=== PATIENT | male | born 1980 | race Two or more races ===

== ENCOUNTER 2019-11-13 11:42 | Inpatient (IN) | payer BC ==
--- NOTE | 2019-11-13 11:46 | BHS.RME ---
Substance Use & Tx History - Substance Use History Alcohol Substance amount: 5-10 beers Frequency of use: Daily Substance route: Oral Date of Last Use: 11/12/19 Marijuana/Hashish Substance amount: $50-60 Frequency of use: Daily Substance route: Smoking Date of Last Use: 11/13/19 Nicotine Substance amount: cigars 5 Frequency of use: Daily Substance route: Smoking Date of Last Use: 11/13/19 - Last Treatment Date of last treatment: none Physical/Psych/Mental Status - Behavior General Behavior: Increased activity (restlessness, agitation) Eye Contact: Normal - Cooperativeness Cooperativeness: Cooperative - Thinking Thought Processes: Tight, Logical, Goal Directed Thought content: Future oriented - Physical Health Problems Is patient presently having any pain?: No Does patient presently have any injuries (include location): No Does patient currently have a fever: No Is patient : No CIWA Nausea/Vomitin Muscle Tremors: 3 Anxiety: 3 Agitation: 3 Paroxysmal Sweats: 1-Minimal Palms Moist Orientation: 0-Oriented Tacttile Disturbances: 0-None Auditory Disturbances: 0-None Visual Disturbances: 0-None Headache: 0-None Present CIWA-Ar Total Score: 12
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
[2019-11-13] MEDS ORDERED: IBUPROFEN 400 MG TABLET (FP) PO PRN (13:07)
[2019-11-13] MEDS ORDERED: NICOTINE POLACRILEX 2 MG GUM BUC PRN (13:07)
[2019-11-13] MEDS ORDERED: ONDANSETRON *ODT* 4 MG TABLET SL ONE (13:07)
[2019-11-13] MEDS ORDERED: MAGNESIUM HYDROX 2400MG/30ML ORAL SUSPENSION 30 ML CUP PO PRN (13:07)
[2019-11-13] MEDS ORDERED: MAG HYDROX/AL HYDROX/SIMETH 30 ML UNIT-DOSE CUP PO PRN (13:07)
[2019-11-13] MEDS ORDERED: MAGNESIUM CITRATE 300 ML BOTTLE PO PRN (13:07)
[2019-11-13] MEDS ORDERED: METHOCARBAMOL 500 MG TABLET PO PRN (13:07)
[2019-11-13] MEDS ORDERED: BISMUTH SUBSALICYLATE 524 MG/30 ML UD PO PRN (13:07)
[2019-11-13] MEDS ORDERED: chlordiazePOXIDE HCL 25 MG CAPSULE PO PRN (13:07)
[2019-11-13] MEDS ORDERED: ACETAMINOPHEN 325 MG TABLET (FP) PO PRN ×2 (13:07)
[2019-11-13 14:33] VITALS: BMI 22.2
[2019-11-13] MEDS ORDERED: TUBERCULIN PPD 5 TU/0.1ML VIAL ID ONE (15:27)
[2019-11-13] MEDS: chlordiazePOXIDE HCL 25 MG CAPSULE PO SCH ×3 (15:28→22:00)
[2019-11-13] MEDS: PRENATAL VITAMINS W/ FOLIC ACID TABLET (FP) PO SCH (15:29)
[2019-11-13] MEDS: hydrOXYzine PAMOATE 25 MG CAPSULE (FP) PO SCH ×3 (15:29→22:00)
[2019-11-13] MEDS: NICOTINE 7 MG/24 HOURS TOPICAL PATCH TD SCH (15:30)
--- NOTE | 2019-11-13 15:49 | EKG ---
Test Reason : Blood Pressure : / mmHG Vent. Rate : 064 BPM Atrial Rate : 064 BPM P-R Int : 138 ms QRS Dur : 092 ms QT Int : 440 ms P-R-T Axes : 051 085 055 degrees QTc Int : 453 ms NORMAL SINUS RHYTHM LEFT ATRIAL ENLARGEMENT LEFT VENTRICULAR HYPERTROPHY ABNORMAL ECG NO PREVIOUS ECGS AVAILABLE Confirmed by MD EUGENE, JUSTUS ([id number]) on 11/13/2019 3:48:55 PM Referred By: Confirmed By:JUSTUS KNIGHT MD
[2019-11-13 16:28] LABS: HEMATOCRIT 40.2 % (35.4-49); HEMOGLOBIN 13.9 GM/dL (11.7-16.9); MCH 31.2 pg (25.7-33.7); MCHC 34.5 g/dl (32.0-35.9); MEAN CELL VOLUME 90.3 fl (80-96); MEAN PLT VOLUME 7.9 fl (7.5-11.1); PLATELET COUNT 246 K/MM3 (134-434); RBC 4.46 M/mm3 (4.00-5.60); RDW 16.5 % (11.9-15.9); WHITE BLOOD COUNT 5.9 K/mm3 (4.0-10.0)
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
[2019-11-13 16:41] LABS: CALCIUM 8.8 mg/dL (8.5-10.1); POTASSIUM 4.5 mmol/L (3.5-5.1)
[2019-11-13 16:47] LABS: ALBUMIN 3.3 g/dl (3.4-5.0); BILIRUBIN,TOTAL 0.6 mg/dL (0.2-1); BLOOD UREA NITROGEN 14.5 mg/dL (7-18); CREATININE 1.2 mg/dL (0.55-1.3); TOT PROT 7.9 g/dl (6.4-8.2)
[2019-11-13] MEDS ORDERED: PATIENT'S OWN MEDICATION (NON-FORMULARY) (Olanzapine [Olanzapine] 15 MG) PO PRN (17:14)
[2019-11-13] MEDS: MENTHOL/PHENOL 1 EACH UD MM PRN ×2 (18:18→22:03)
[2019-11-13] MEDS: OLANZapine 5 MG TABLET PO SCH (21:59)
[2019-11-13] MEDS: MELATONIN 5 MG TABLETS PO SCH (21:59)
[2019-11-13] MEDS: THIAMINE HCL 100 MG TABLET (FP) PO SCH (22:00)
[2019-11-14] MEDS: chlordiazePOXIDE HCL 25 MG CAPSULE PO SCH ×4 (06:57→22:14)
[2019-11-14] MEDS: hydrOXYzine PAMOATE 25 MG CAPSULE (FP) PO SCH ×5 (06:58→22:14)
[2019-11-14] MEDS: PRENATAL VITAMINS W/ FOLIC ACID TABLET (FP) PO SCH (10:18)
[2019-11-14] MEDS: NICOTINE 7 MG/24 HOURS TOPICAL PATCH TD SCH (10:19)
--- NOTE | 2019-11-14 12:21 | PN ---
S CIWA - CIWA Score Nausea/Vomitin-No Nausea/No Vomiting Muscle Tremors: 4-Moderate,w/Arms Extend Anxiety: 1-Mildly Anxious Agitation: 0-Normal Activity Paroxysmal Sweats: 4-Forehead w/Sweat Beads Orientation: 1-Uncertain about Date Tacttile Disturbances: 1-Very Mild Itch/Numbness Auditory Disturbances: 0-None Visual Disturbances: 0-None Headache: 2-Mild CIWA-Ar Total Score: 13 S Progress Note (SOAP) Subjective: Patient admitted yesterday for detox from alcohol. Now c/o sore throat. PMHx: 39 year old male with history of alcohol dependence with withdrawals. H Alcohol: 5-10 beers 16 oz -24 oz daily, started at age 15, endorses blackouts, last one just 2 days prior to admission; needs eye business intelligence administrator daily. denies seizure. Marijuana: $50-60 daily, started smoking at the age of 32 PMH: none Psurg: None Psych: Schizophrenia, Depression on no meds. Objective: - Physical General Appearance: Thin, Irritable, Sweating, Anxious HEENTM: EOMI, Hearing grossly Normal,Normocephalic, Hoarse Voice, BREANN, Pharynx reddened. tongue with white coat Respiratory: No Respiratory Distress, No Accessory Muscle Use Neck:Supple, Cardiology: S1, S2 Abdominal: +Bowel Sounds, Non Tender, Flat, Soft Musculoskeletal: no muscle atrophy noted Neurological: oriented x4 Lymph: non-palpable 11/14/19 12:23 11/14/19 12:34 11/14/19 12:37 Assessment: withdrawal from alcohol throat discomfort 11/14/19 12:35 Plan: continue detox protocol encourage cepacol Nystatin swish & swallow
[2019-11-14] MEDS: OLANZapine 5 MG TABLET PO SCH (22:14)
[2019-11-14] MEDS: THIAMINE HCL 100 MG TABLET (FP) PO SCH (22:14)
[2019-11-14] MEDS: MELATONIN 5 MG TABLETS PO SCH (22:14)
[2019-11-15] MEDS: chlordiazePOXIDE HCL 25 MG CAPSULE PO SCH ×4 (05:48→23:07)
[2019-11-15] MEDS: hydrOXYzine PAMOATE 25 MG CAPSULE (FP) PO SCH ×5 (05:48→23:07)
[2019-11-15] MEDS: PRENATAL VITAMINS W/ FOLIC ACID TABLET (FP) PO SCH (10:46)
[2019-11-15] MEDS: NICOTINE 7 MG/24 HOURS TOPICAL PATCH TD SCH (10:47)
[2019-11-15] MEDS: MENTHOL/PHENOL 1 EACH UD MM PRN (10:48)
--- NOTE | 2019-11-15 10:59 | PN ---
S CIWA - CIWA Score Nausea/Vomitin-Mild Nausea/No Vomiting Muscle Tremors: 3 Anxiety: 4-Mod. Anxious/Guarded Agitation: 3 Paroxysmal Sweats: 2 Orientation: 0-Oriented Tacttile Disturbances: 0-None Auditory Disturbances: 0-None Visual Disturbances: 0-None Headache: 0-None Present CIWA-Ar Total Score: 13 BHS Progress Note (SOAP) Subjective: Pt c/o anxiety throat irritation(see previous day note) sweats intermittent sleep. Objective: 11/15/19 10:56 Vital Signs - 24 hr 11/14/19 11/14/19 11/14/19 12:30 16:30 20:10 Temperature 98.6 F 97.7 F 97.1 F L Pulse Rate 90 88 98 H Respiratory 18 16 18 Rate Blood Pressure 125/73 133/75 117/76 O2 Sat by Pulse 97 96 Oximetry (%) 11/15/19 05:36 Temperature 98.2 F Pulse Rate 78 Respiratory 18 Rate Blood Pressure 112/66 O2 Sat by Pulse 94 L Oximetry (%) Laboratory Tests 11/13/19 11/13/19 11/13/19 13:30 13:30 13:30 WBC 5.9 RBC 4.46 Hgb 13.9 Hct 40.2 MCV 90.3 MCH 31.2 MCHC 34.5 RDW 16.5 H Plt Count 246 MPV 7.9 Sodium 139 Potassium 4.5 Chloride 103 Carbon Dioxide 29 Anion Gap 7 L BUN 14.5 Creatinine 1.2 Est GFR (CKD-EPI)AfAm 86.53 Est GFR (CKD-EPI)NonAf 74.66 Random Glucose 91 Calcium 8.8 Total Bilirubin 0.6 AST 57 H ALT 73 H Alkaline Phosphatase 79 Total Protein 7.9 Albumin 3.3 L Syphilis Serology Non-reactive covid-19 result pending alert o x 3 nad laying in bed and communicating coherently Assessment: 11/15/19 10:57 withdrawal sx Plan: cont detox/present care increase po fluids maintain safety Nystatin Oral suspension as directed.
[2019-11-15] MEDS ORDERED: ONDANSETRON *ODT* 4 MG TABLET SL PRN (11:29)
[2019-11-15] MEDS: NYSTATIN 500,000 UNITS/5 ML SUSPENSION PO SCH ×2 (12:02→17:51)
[2019-11-15] MEDS: guaiFENesin/D-METHORPHAN HB 10 ML UNIT-DOSE CUPS PO PRN (23:06)
[2019-11-15] MEDS: OLANZapine 5 MG TABLET PO SCH (23:07)
[2019-11-15] MEDS: THIAMINE HCL 100 MG TABLET (FP) PO SCH (23:07)
[2019-11-15] MEDS: MELATONIN 5 MG TABLETS PO SCH (23:08)
[2019-11-16] MEDS ORDERED: chlordiazePOXIDE HCL 10 MG CAPSULE PO PRN
[2019-11-16] MEDS: NYSTATIN 500,000 UNITS/5 ML SUSPENSION PO SCH ×4 (01:23→17:30)
[2019-11-16] MEDS: guaiFENesin/D-METHORPHAN HB 10 ML UNIT-DOSE CUPS PO PRN ×3 (06:15→22:04)
[2019-11-16] MEDS: chlordiazePOXIDE HCL 10 MG CAPSULE PO SCH ×4 (06:15→22:04)
[2019-11-16] MEDS: hydrOXYzine PAMOATE 25 MG CAPSULE (FP) PO SCH ×5 (06:15→22:04)
[2019-11-16] MEDS: PRENATAL VITAMINS W/ FOLIC ACID TABLET (FP) PO SCH (10:10)
[2019-11-16] MEDS: NICOTINE 7 MG/24 HOURS TOPICAL PATCH TD SCH (10:12)
--- NOTE | 2019-11-16 10:37 | PN ---
[facility] CIWA - CIWA Score Nausea/Vomitin-No Nausea/No Vomiting Muscle Tremors: 3 Anxiety: 3 Agitation: 2 Paroxysmal Sweats: No Perspiration Orientation: 0-Oriented Tacttile Disturbances: 0-None Auditory Disturbances: 0-None Visual Disturbances: 2-Mild Sensitivity Headache: 0-None Present CIWA-Ar Total Score: 10 S Progress Note (SOAP) Subjective: Complaints of sweat, anxiety, mild throat and tremors. Objective: 11/16/19 10:37 Vital Signs 11/16/19 11/16/19 05:38 08:31 Temperature 98.7 F 97.7 F Pulse Rate 87 98 H Respiratory 18 18 Rate Blood Pressure 124/70 120/73 O2 Sat by Pulse 91 L 97 Oximetry (%) Laboratory Last Values WBC 5.9 K/mm3 (4.0-10.0) 11/13/19 13:30 RBC 4.46 M/mm3 (4.00-5.60) 11/13/19 13:30 Hgb 13.9 GM/dL (11.7-16.9) 11/13/19 13:30 Hct 40.2 % (35.4-49) 11/13/19 13:30 MCV 90.3 fl (80-96) 11/13/19 13:30 MCH 31.2 pg (25.7-33.7) 11/13/19 13:30 MCHC 34.5 g/dl (32.0-35.9) 11/13/19 13:30 RDW 16.5 % (11.9-15.9) H 11/13/19 13:30 Plt Count 246 K/MM3 (134-434) 11/13/19 13:30 MPV 7.9 fl (7.5-11.1) 11/13/19 13:30 Sodium 139 mmol/L (136-145) 11/13/19 13:30 Potassium 4.5 mmol/L (3.5-5.1) 11/13/19 13:30 Chloride 103 mmol/L (98-107) 11/13/19 13:30 Carbon Dioxide 29 mmol/L (21-32) 11/13/19 13:30 Anion Gap 7 MMOL/L (8-16) L 11/13/19 13:30 BUN 14.5 mg/dL (7-18) 11/13/19 13:30 Creatinine 1.2 mg/dL (0.55-1.3) 11/13/19 13:30 Est GFR (CKD-EPI)AfAm 86.53 11/13/19 13:30 Est GFR (CKD-EPI)NonAf 74.66 11/13/19 13:30 Random Glucose 91 mg/dL (74-106) 11/13/19 13:30 Calcium 8.8 mg/dL (8.5-10.1) 11/13/19 13:30 Total Bilirubin 0.6 mg/dL (0.2-1) 11/13/19 13:30 AST 57 U/L (15-37) H 11/13/19 13:30 ALT 73 U/L (13-61) H 11/13/19 13:30 Alkaline Phosphatase 79 U/L (45-117) 11/13/19 13:30 Total Protein 7.9 g/dl (6.4-8.2) 11/13/19 13:30 Albumin 3.3 g/dl (3.4-5.0) L 11/13/19 13:30 Syphilis Serology Non-reactive (NONREACTIVE) 11/13/19 13:30 COVID-19 (GILBERTO) Not detected (Not Detected) 11/13/19 14:30 Labs reviewed. Assessment: 11/16/19 10:38 Alert and oriented x 3, in no acute respiratory distress. Full ROM, ambulating in the unit with cane. Withdrawal symptoms. Plan: Continue detox protocol.
[2019-11-16] MEDS: THIAMINE HCL 100 MG TABLET (FP) PO SCH (22:04)
[2019-11-16] MEDS: OLANZapine 5 MG TABLET PO SCH (22:04)
[2019-11-16] MEDS: MELATONIN 5 MG TABLETS PO SCH (22:04)
[2019-11-17] MEDS: NYSTATIN 500,000 UNITS/5 ML SUSPENSION PO SCH ×5 (00:33→23:24)
[2019-11-17] MEDS: hydrOXYzine PAMOATE 25 MG CAPSULE (FP) PO SCH ×5 (06:34→21:21)
[2019-11-17] MEDS: chlordiazePOXIDE HCL 10 MG CAPSULE PO SCH ×2 (06:34→17:31)
[2019-11-17] MEDS: NICOTINE 7 MG/24 HOURS TOPICAL PATCH TD SCH (10:19)
[2019-11-17] MEDS: PRENATAL VITAMINS W/ FOLIC ACID TABLET (FP) PO SCH (10:19)
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
[2019-11-17] MEDS: OLANZapine 5 MG TABLET PO SCH (21:21)
[2019-11-17] MEDS: THIAMINE HCL 100 MG TABLET (FP) PO SCH (21:21)
[2019-11-17] MEDS: MELATONIN 5 MG TABLETS PO SCH (21:21)
[2019-11-18] MEDS ORDERED: chlordiazePOXIDE HCL 10 MG CAPSULE PO ONE (05:00)
[2019-11-18] MEDS: NYSTATIN 500,000 UNITS/5 ML SUSPENSION PO SCH (06:16)
[2019-11-18] MEDS: hydrOXYzine PAMOATE 25 MG CAPSULE (FP) PO SCH ×2 (06:16→10:28)
[2019-11-18 06:23] VITALS: BP 141/75; PULSE 96; TEMP 98
--- NOTE | 2019-11-18 08:52 | DS ---
[facility] Detox Discharge Summary Admission Date: 11/13/19 Discharge Date: 11/18/19 - History Present History: Alcohol Dependence Additional Comments: Pt completed detox and discharging today. Pt was referred to [facility] but wants to go home today and follow up later. Pt states he has a PCP, Dr. Estes and a psychiatrist Dr. Maciel Brown at [facility]. Pt to follow up with providers for medical/psych management. Pertinent Past History: Depression Schizophrenia Sleeping problem - Physical Exam Results Vital Signs: Vital Signs Temperature 98.0 F 11/18/19 05:51 Pulse Rate 96 H 11/18/19 05:51 Respiratory Rate 17 11/18/19 05:51 Blood Pressure 141/75 11/18/19 05:51 O2 Sat by Pulse Oximetry (%) 97 11/18/19 05:51 Alert o x 3 nad oob ambulating with steady gait cardiac:s1 s2,rrr lungs:ctab extremities:no edema;skin intact. Pertinent Admission Physical Exam Findings: Laboratory Tests 11/13/19 11/13/19 11/13/19 13:30 13:30 13:30 WBC 5.9 RBC 4.46 Hgb 13.9 Hct 40.2 MCV 90.3 MCH 31.2 MCHC 34.5 RDW 16.5 H Plt Count 246 MPV 7.9 Sodium 139 Potassium 4.5 Chloride 103 Carbon Dioxide 29 Anion Gap 7 L BUN 14.5 Creatinine 1.2 Est GFR (CKD-EPI)AfAm 86.53 Est GFR (CKD-EPI)NonAf 74.66 Random Glucose 91 Calcium 8.8 Total Bilirubin 0.6 AST 57 H ALT 73 H Alkaline Phosphatase 79 Total Protein 7.9 Albumin 3.3 L Syphilis Serology Non-reactive COVID-19 (GILBERTO) 11/13/19 14:30 WBC RBC Hgb Hct MCV MCH MCHC RDW Plt Count MPV Sodium Potassium Chloride Carbon Dioxide Anion Gap BUN Creatinine Est GFR (CKD-EPI)AfAm Est GFR (CKD-EPI)NonAf Random Glucose Calcium Total Bilirubin AST ALT Alkaline Phosphatase Total Protein Albumin Syphilis Serology COVID-19 (GILBERTO) Not detected - Treatment Hospital Course: Detox Protocol Followed, Detoxed Safely, Responded well, Discharged Condition Good (Reports throat symptom resolved and does not need further treatment.), Rehab Referral Accepted Patient has Accepted a Rehab Referral to: [facility] - Medication Discharge Medications: Ambulatory Orders Hydroxyzine HCl 50 mg PO QID PRN 11/13/19 Olanzapine 20 mg PO DAILY PRN 11/13/19 - Diagnosis (1) Alcohol dependence with withdrawal Status: Acute Qualifiers: Complication of substance-induced condition: uncomplicated Qualified Code(s): F10.230 - Alcohol dependence with withdrawal, uncomplicated (2) Hoarseness of voice Status: Acute (3) Throat irritation Status: Acute - AMA Did Patient Leave Against Medical Advice: No
[2019-11-18] MEDS: NICOTINE 7 MG/24 HOURS TOPICAL PATCH TD SCH (10:28)
[2019-11-18] MEDS: PRENATAL VITAMINS W/ FOLIC ACID TABLET (FP) PO SCH (10:28)
== END 2019-11-18 12:00 | disposition home or self-care (01) | DRG 775 ==
LOC: YASAS 11:42 → Y5N DETOX 14:27
PROVIDERS: ADMIT Allergy & Immunology; ATTEND Allergy & Immunology
PROC: HZ2ZZZZ Detoxification Services for Substance Abuse Treatment (ICD-10-PCS; principal; 2019-11-13)
DX: F10.230 Alcohol dependence with withdrawal, uncomplicated (principal); F12.20 Cannabis dependence, uncomplicated; F17.210 Nicotine dependence, cigarettes, uncomplicated; F20.9 Schizophrenia, unspecified; F19.282 Other psychoactive substance dependence with psychoactive substance-induced sleep disorder; F32.9 Major depressive disorder, single episode, unspecified; J02.9 Acute pharyngitis, unspecified; R49.0 Dysphonia; S70.02XD Contusion of left hip, subsequent encounter; Y08.02XD Assault by strike by baseball bat, subsequent encounter; Z99.89 Dependence on other enabling machines and devices
CPT/HCPCS: 36415; 80053; 85027; 86780; 93005; 93010; U0003

== ENCOUNTER 2020-01-27 15:03 | Inpatient (IN) | payer BC ==
--- NOTE | 2020-01-27 15:19 | BHS.RME ---
Substance Use & Tx History - Substance Use History Alcohol Substance amount: 5-10 beers Frequency of use: Daily Substance route: Oral Date of Last Use: 01/27/20 (started age 14) Marijuana/Hashish Substance amount: $50-60 Frequency of use: Daily Substance route: Smoking Date of Last Use: 01/27/20 (started age 14) Nicotine Substance amount: 10 ciggs Frequency of use: Daily Substance route: Smoking Date of Last Use: 01/27/20 (started age 14) Physical/Psych/Mental Status - Behavior General Behavior: Increased activity (restlessness, agitation) Eye Contact: Normal - Cooperativeness Cooperativeness: Cooperative - Thinking Thought Processes: Tight, Logical, Goal Directed - Physical Health Problems Is patient presently having any pain?: No Does patient presently have any injuries (include location): No Does patient currently have a fever: No Is patient : No CIWA Nausea/Vomitin Muscle Tremors: 3 Anxiety: 3 Agitation: 3 Paroxysmal Sweats: 5 Orientation: 1-Uncertain about Date Tacttile Disturbances: 0-None Auditory Disturbances: 0-None Visual Disturbances: 1-Very Mild Sensitivity Headache: 0-None Present CIWA-Ar Total Score: 18
[2020-01-27 16:38] VITALS: BMI 23.7
--- NOTE | 2020-01-27 17:21 | HP ---
CIWA Score Nausea/Vomitin (vomiting x 2) Muscle Tremors: 3 Anxiety: 4-Mod. Anxious/Guarded Agitation: 3 Paroxysmal Sweats: 3 Orientation: 0-Oriented Tacttile Disturbances: 0-None Auditory Disturbances: 0-None Visual Disturbances: 0-None Headache: 2-Mild CIWA-Ar Total Score: 18 - Admission Criteria OASAS Guidelines: Admission for Medically Managed Detox: Requires at least one of the followin. CIWA greater than 12 2. Seizures within the past 24 hours 3. Delirium tremens within the past 24 hours 4. Hallucinations within the past 24 hours 5. Acute intervention needed for co occurring medical disorder 6. Acute intervention needed for co occurring psychiatric disorder 7. Severe withdrawal that cannot be handled at a lower level of care (continued vomiting, continued diarrhea, abnormal vital signs) requiring intravenous medication and/or fluids 8. Admitting History and Physical - Past Surgical History Past Surgical History: Yes: None - Smoking History Smoking history: Current every day smoker Have you smoked in the past 12 months: Yes Aproximately how many cigarettes per day: 0 - Alcohol/Substance Use Hx Alcohol Use: Yes History of Substance Use: reports: Marijuana Date of Last Use: 11/13/19 - Social History ADL: Independent Occupation: Quality Control Operator, unemployed History of Recent Travel: No Admission ROS [facility] Chief Complaint: Alcohol withdrawal symptoms Allergies/Adverse Reactions: Allergies Allergy/AdvReac Type Severity Reaction Status Date / Time No Known Allergies Allergy Verified 11/13/19 13:07 History of Present Illness: 39 years old male with a long history of alcohol dependence is seeking admission to detox. His last admission was for the period 11/13/2019 - 11/18/2019 and reports that he relapsed the same day he was discharged. He drinks 10 bottles of 12oz. beer and 3 pints of Suzanne daily. He denies medical history and reports psych. history of depression, schizophrenia. He reports suicidal attempt in 2011 and denies suicidal ideation at this time. He is unemployed ([employer]), lives alone in a studio apartment and denies legal issues. 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 His CIWA score is 18 and CARI is 0.137. Exam Limitations: Intoxication - Ebola screening Have you traveled outside of the country in the last 21 days: No Have you had contact with anyone from an Ebola affected area: No Have you been sick,other than usual withdrawal symptoms: No Do you have a fever: No - Review of Systems Constitutional: Chills, Loss of Appetite, Malaise, Night Sweats, Changes in sleep EENT: reports: No Symptoms Reported Respiratory: reports: No Symptoms reported Cardiac: reports: No Symptoms Reported GI: reports: Constipated, Poor Appetite, Poor Fluid Intake, Vomiting (x 2), Abdominal cramping : reports: No Symptoms Reported Musculoskeletal: reports: Back Pain, Muscle Pain Integumentary: reports: Dryness, Flushing Neuro: reports: Headache, Tremors Endocrine: reports: No Symptoms Reported Hematology: reports: No Symptoms Reported Psychiatric: reports: Mood/Affect Appropiate, Anxious, Depressed Other Systems: Reviewed and Negative Patient History - Patient Medical History Hx Anemia: No Hx Asthma: No Hx Chronic Obstructive Pulmonary Disease (COPD): No Hx Cancer: No Hx Cardiac Disorders: No Hx Congestive Heart Failure: No Hx Hypertension: No Hx Hypercholesterolemia: No Hx Pacemaker: No HX Cerebrovascular Accident: No Hx Seizures: No Hx Dementia: No Hx Diabetes: No Hx Gastrointestinal Disorders: No Hx Liver Disease: No Hx Genitourinary Disorders: No Hx Sexually Transmitted Disorders: No Hx Renal Disease (ESRD): No Hx Thyroid Disease: No Hx Human Immunodeficiency Virus (HIV): No (Negative 2020) Hx Hepatitis C: No Hx Depression: Yes (Pt. reports dx of Schizophrenia w/ Depressive feat., & Insomnia) Hx Suicide Attempt: Yes (Attempt in 2011. Denies suicidal ideation at this time) Hx Bipolar Disorder: No Hx Schizophrenia: Yes (Pt. reports dx of Schizophrenia w/ Depressive feat., & Insomnia) - Patient Surgical History Past Surgical History: No Hx Neurologic Surgery: No Hx Cataract Extraction: No Hx Cardiac Surgery: No Hx Lung Surgery: No Hx Abdominal Surgery: No Hx Appendectomy: No Hx Cholecystectomy: No Hx Genitourinary Surgery: No Hx Orthopedic Surgery: No - PPD History Previous Implant?: Yes Documented Results: Negative w/proof Implanted On Prior [facility] Admission?: Yes Date: 11/15/19 PPD to be Administered?: No - Reproductive History Patient is a Female of Child Bearing Age (11 -55 yrs old): No (Male) - Smoking Cessation Smoking history: Current every day smoker Have you smoked in the past 12 months: Yes Aproximately how many cigarettes per day: 5 Cigars Per Day: 5 Hx Chewing Tobacco Use: No Initiated information on smoking cessation: Yes 'Breaking Loose' booklet given: 01/27/20 - Substance & Tx. History Hx Alcohol Use: Yes Hx Substance Use: Yes Substance Use Type: Alcohol, Marijuana Hx Substance Use Treatment: Yes ([facility]) - Substances abused Alcohol Substance route: Oral Frequency: Daily Amount used: 10 bottles of 12oz. beer and 3 pints of Suzanne Age of first use: 14 Date of last use: 01/27/20 Admission Physical Exam [facility] - Vital Signs Vital Signs: Vital Signs - 24 hr 01/27/20 16:37 Temperature 97.9 F Pulse Rate 100 H Respiratory 18 Rate Blood Pressure 136/69 - Physical General Appearance: Yes: Moderate Distress, Intoxicated, Tremorous, Anxious HEENTM: Yes: Within Normal Limits Respiratory: Yes: Lungs Clear, Normal Breath Sounds, No Respiratory Distress Neck: Yes: Within Normal Limits Breast: Yes: Breast Exam Deferred Cardiology: Yes: Within Normal Limits Abdominal: Yes: Normal Bowel Sounds Genitourinary: Yes: Within Normal Limits Back: Yes: Normal Inspection Musculoskeletal: Yes: Back pain Extremities: Yes: Tremors Neurological: Yes: Within Normal Limits Integumentary: Yes: Warm Lymphatic: Yes: Within Normal Limits - Diagnostic (1) Alcohol dependence with withdrawal, uncomplicated Current Visit: Yes Status: Acute (2) Nicotine dependence Current Visit: Yes Status: Chronic Qualifiers: Nicotine product type: cigarettes Substance use status: uncomplicated Qualified Code(s): F17.210 - Nicotine dependence, cigarettes, uncomplicated (3) Marijuana dependence Current Visit: Yes Status: Chronic (4) Depression Current Visit: Yes Status: Acute Qualifiers: Depression Type: unspecified Qualified Code(s): F32.9 - Major depressive disorder, single episode, unspecified (5) Schizophrenia Current Visit: Yes Status: Chronic Qualifiers: Schizophrenia type: unspecified Qualified Code(s): F20.9 - Schizophrenia, unspecified (6) Hoarseness of voice Current Visit: Yes Status: Chronic Cleared for Admission [facility] - Detox or Rehab [facility] Level of Care: Medically Managed Detox Regimen/Protocol: Librium Claeared for Rehab Admission: No Breathalyzer - Breathalyzer Breathalyzer: 0.137 Urine Drug Screen - Test Device Lot number: [id number] Expiration date: 08/06/21 - Control Is test valid?: Yes - Results Drug screen NEGATIVE: No Urine drug screen results: THC-Marijuana Inpatient Rehab Admission - Rehab Decision to Admit Inpatient rehab admission?: No
[2020-01-27] MEDS ORDERED: IBUPROFEN 400 MG TABLET (FP) PO PRN (17:35)
[2020-01-27] MEDS ORDERED: MAGNESIUM CITRATE 300 ML BOTTLE PO PRN (17:35)
[2020-01-27] MEDS ORDERED: METHOCARBAMOL 500 MG TABLET PO PRN (17:35)
[2020-01-27] MEDS ORDERED: MAG HYDROX/AL HYDROX/SIMETH 30 ML UNIT-DOSE CUP PO PRN (17:35)
[2020-01-27] MEDS ORDERED: BISMUTH SUBSALICYLATE 524 MG/30 ML UD PO PRN (17:35)
[2020-01-27] MEDS ORDERED: NICOTINE POLACRILEX 2 MG GUM BUC PRN (17:35)
[2020-01-27] MEDS ORDERED: ACETAMINOPHEN 325 MG TABLET (FP) PO PRN ×2 (17:35)
[2020-01-27] MEDS ORDERED: ONDANSETRON *ODT* 4 MG TABLET SL PRN (17:35)
[2020-01-27] MEDS ORDERED: MAGNESIUM HYDROX 2400MG/30ML ORAL SUSPENSION 30 ML CUP PO PRN (17:35)
[2020-01-27] MEDS ORDERED: chlordiazePOXIDE HCL 25 MG CAPSULE PO PRN (17:35)
[2020-01-27] MEDS: chlordiazePOXIDE HCL 25 MG CAPSULE PO SCH (22:16)
[2020-01-27] MEDS: MELATONIN 5 MG TABLETS PO SCH (22:16)
[2020-01-27] MEDS: THIAMINE HCL 100 MG TABLET (FP) PO SCH (22:16)
[2020-01-27] MEDS: MENTHOL/PHENOL 1 EACH UD MM PRN (22:18)
[2020-01-28] MEDS: chlordiazePOXIDE HCL 25 MG CAPSULE PO SCH ×4 (06:06→22:11)
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
[2020-01-28] MEDS ORDERED: hydrOXYzine PAMOATE 50 MG CAPSULE (FP) PO PRN (09:06)
--- NOTE | 2020-01-28 10:14 | EKG ---
Test Reason : Blood Pressure : / mmHG Vent. Rate : 081 BPM Atrial Rate : 081 BPM P-R Int : 138 ms QRS Dur : 090 ms QT Int : 392 ms P-R-T Axes : 066 086 063 degrees QTc Int : 455 ms NORMAL SINUS RHYTHM POSSIBLE LEFT ATRIAL ENLARGEMENT LEFT VENTRICULAR HYPERTROPHY ABNORMAL ECG Confirmed by MD Ashli, Armond ([id number]) on 01/28/2020 10:13:53 AM Referred By: MIHIR CHAVEZ Confirmed By:Armond Cornelius MD
[2020-01-28 10:48] LABS: HEMATOCRIT 39.7 % (35.4-49); HEMOGLOBIN 13.7 GM/dL (11.7-16.9); MCH 31.9 pg (25.7-33.7); MCHC 34.6 g/dl (32.0-35.9); MEAN CELL VOLUME 92.3 fl (80-96); PLATELET COUNT 237 K/MM3 (134-434); RDW 14.4 % (11.9-15.9); WHITE BLOOD COUNT 6.6 K/mm3 (4.0-10.0)
[2020-01-28] MEDS: PRENATAL VITAMINS W/ FOLIC ACID TABLET (FP) PO SCH (10:55)
[2020-01-28] MEDS: NICOTINE 14 MG/24 HOURS TOPICAL PATCH TD SCH (10:56)
[2020-01-28] MEDS: MENTHOL/PHENOL 1 EACH UD MM PRN ×2 (10:56→18:10)
[2020-01-28 11:01] LABS: POTASSIUM 4.2 mmol/L (3.5-5.1)
[2020-01-28 11:09] LABS: ALBUMIN 3.3 g/dl (3.4-5.0); BILIRUBIN,TOTAL 0.8 mg/dL (0.2-1); BLOOD UREA NITROGEN 12.2 mg/dL (7-18); CALCIUM 8.4 mg/dL (8.5-10.1); CREATININE 0.9 mg/dL (0.55-1.3); TOT PROT 7.2 g/dl (6.4-8.2)
--- NOTE | 2020-01-28 12:40 | PN ---
S CIWA - CIWA Score Nausea/Vomitin-No Nausea/No Vomiting Muscle Tremors: 3 Anxiety: 2 Agitation: 2 Paroxysmal Sweats: 2 Orientation: 0-Oriented Tacttile Disturbances: 0-None Auditory Disturbances: 0-None Visual Disturbances: 0-None Headache: 0-None Present CIWA-Ar Total Score: 9 BHS Progress Note (SOAP) Subjective: sweats shakes body aches interrupted sleep Objective: 01/28/20 12:39 Vital Signs Temperature 98.2 F 01/28/20 05:07 Pulse Rate 63 01/28/20 05:07 Respiratory Rate 16 01/28/20 05:07 Blood Pressure 120/58 L 01/28/20 05:07 O2 Sat by Pulse Oximetry (%) 96 01/28/20 05:07 Laboratory Tests 01/27/20 01/28/20 01/28/20 07:00 07:00 07:15 WBC 6.6 RBC 4.30 Hgb 13.7 Hct 39.7 MCV 92.3 MCH 31.9 MCHC 34.6 RDW 14.4 D Plt Count 237 MPV 8.0 Sodium 136 Potassium 4.2 Chloride 102 Carbon Dioxide 30 Anion Gap 5 L BUN 12.2 Creatinine 0.9 Est GFR (CKD-EPI)AfAm 122.52 Est GFR (CKD-EPI)NonAf 105.71 Random Glucose 94 Calcium 8.4 L Total Bilirubin 0.8 AST 66 H ALT 65 H Alkaline Phosphatase 62 Total Protein 7.2 Albumin 3.3 L Syphilis Serology Non-reactive labs noted aaox3 lying in bed no acute distress Assessment: 01/28/20 12:39 withdrawal sx Plan: continue detox
[2020-01-28] MEDS: MELATONIN 5 MG TABLETS PO SCH (22:11)
[2020-01-28] MEDS: THIAMINE HCL 100 MG TABLET (FP) PO SCH (22:11)
[2020-01-28] MEDS: OLANZapine 10 MG TABLET PO SCH (22:11)
[2020-01-29] MEDS: chlordiazePOXIDE HCL 25 MG CAPSULE PO SCH ×4 (06:19→22:00)
[2020-01-29] MEDS: NICOTINE 14 MG/24 HOURS TOPICAL PATCH TD SCH (12:52)
[2020-01-29] MEDS: PRENATAL VITAMINS W/ FOLIC ACID TABLET (FP) PO SCH (12:54)
[2020-01-29] MEDS: MENTHOL/PHENOL 1 EACH UD MM PRN ×2 (12:55→22:11)
--- NOTE | 2020-01-29 13:00 | PN ---
S CIWA - CIWA Score Nausea/Vomitin-No Nausea/No Vomiting Muscle Tremors: 2 Anxiety: 1-Mildly Anxious Agitation: 2 Paroxysmal Sweats: 1-Minimal Palms Moist Orientation: 0-Oriented Tacttile Disturbances: 0-None Auditory Disturbances: 0-None Visual Disturbances: 0-None Headache: 0-None Present CIWA-Ar Total Score: 6 BHS Progress Note (SOAP) Subjective: sweats restless body aches Objective: 01/29/20 13:00 Vital Signs Temperature 98.4 F 01/29/20 08:33 Pulse Rate 92 H 01/29/20 08:33 Respiratory Rate 18 01/29/20 08:33 Blood Pressure 125/75 01/29/20 08:33 O2 Sat by Pulse Oximetry (%) 96 01/29/20 05:49 Laboratory Tests 01/27/20 01/27/20 01/28/20 07:00 19:15 07:00 WBC RBC Hgb Hct MCV MCH MCHC RDW Plt Count MPV Sodium 136 Potassium 4.2 Chloride 102 Carbon Dioxide 30 Anion Gap 5 L BUN 12.2 Creatinine 0.9 Est GFR (CKD-EPI)AfAm 122.52 Est GFR (CKD-EPI)NonAf 105.71 Random Glucose 94 Calcium 8.4 L Total Bilirubin 0.8 AST 66 H ALT 65 H Alkaline Phosphatase 62 Total Protein 7.2 Albumin 3.3 L Syphilis Serology Non-reactive COVID-19 (GILBERTO) Not detected 01/28/20 07:15 WBC 6.6 RBC 4.30 Hgb 13.7 Hct 39.7 MCV 92.3 MCH 31.9 MCHC 34.6 RDW 14.4 D Plt Count 237 MPV 8.0 Sodium Potassium Chloride Carbon Dioxide Anion Gap BUN Creatinine Est GFR (CKD-EPI)AfAm Est GFR (CKD-EPI)NonAf Random Glucose Calcium Total Bilirubin AST ALT Alkaline Phosphatase Total Protein Albumin Syphilis Serology COVID-19 (GILBERTO) labs noted aaox3 ambulating no acute distress Assessment: 01/29/20 13:00 withdrawals Plan: continue detox
[2020-01-29] MEDS: OLANZapine 10 MG TABLET PO SCH (22:09)
[2020-01-29] MEDS: THIAMINE HCL 100 MG TABLET (FP) PO SCH (22:09)
[2020-01-29] MEDS: MELATONIN 5 MG TABLETS PO SCH (22:09)
[2020-01-30] MEDS ORDERED: chlordiazePOXIDE HCL 10 MG CAPSULE PO PRN
[2020-01-30] MEDS: chlordiazePOXIDE HCL 10 MG CAPSULE PO SCH ×4 (06:58→22:37)
[2020-01-30] MEDS: NICOTINE 14 MG/24 HOURS TOPICAL PATCH TD SCH (10:22)
[2020-01-30] MEDS: PRENATAL VITAMINS W/ FOLIC ACID TABLET (FP) PO SCH (10:22)
[2020-01-30] MEDS: MENTHOL/PHENOL 1 EACH UD MM PRN ×2 (10:23→17:48)
--- NOTE | 2020-01-30 13:31 | PN ---
BHS CIWA - CIWA Score Nausea/Vomitin-No Nausea/No Vomiting Muscle Tremors: 2 Anxiety: 1-Mildly Anxious Agitation: 1-Slight > Activity Paroxysmal Sweats: 1-Minimal Palms Moist Orientation: 0-Oriented Tacttile Disturbances: 0-None Auditory Disturbances: 0-None Visual Disturbances: 0-None Headache: 0-None Present CIWA-Ar Total Score: 5 BHS Progress Note (SOAP) Subjective: sweats Objective: 01/30/20 13:30 Vital Signs Temperature 98.2 F 01/30/20 12:21 Pulse Rate 99 H 01/30/20 12:21 Respiratory Rate 18 01/30/20 12:21 Blood Pressure 133/77 01/30/20 12:21 O2 Sat by Pulse Oximetry (%) 97 01/30/20 12:21 Laboratory Tests 01/27/20 01/27/20 01/28/20 07:00 19:15 07:00 WBC RBC Hgb Hct MCV MCH MCHC RDW Plt Count MPV Sodium 136 Potassium 4.2 Chloride 102 Carbon Dioxide 30 Anion Gap 5 L BUN 12.2 Creatinine 0.9 Est GFR (CKD-EPI)AfAm 122.52 Est GFR (CKD-EPI)NonAf 105.71 Random Glucose 94 Calcium 8.4 L Total Bilirubin 0.8 AST 66 H ALT 65 H Alkaline Phosphatase 62 Total Protein 7.2 Albumin 3.3 L Syphilis Serology Non-reactive COVID-19 (GILBERTO) Not detected 01/28/20 07:15 WBC 6.6 RBC 4.30 Hgb 13.7 Hct 39.7 MCV 92.3 MCH 31.9 MCHC 34.6 RDW 14.4 D Plt Count 237 MPV 8.0 Sodium Potassium Chloride Carbon Dioxide Anion Gap BUN Creatinine Est GFR (CKD-EPI)AfAm Est GFR (CKD-EPI)NonAf Random Glucose Calcium Total Bilirubin AST ALT Alkaline Phosphatase Total Protein Albumin Syphilis Serology COVID-19 (GILBERTO) labs noted aaox3 ambulating no acute distress Assessment: 01/30/20 13:31 withdrawals Plan: continue detox
[2020-01-30] MEDS: THIAMINE HCL 100 MG TABLET (FP) PO SCH (22:37)
[2020-01-30] MEDS: OLANZapine 10 MG TABLET PO SCH (22:37)
[2020-01-30] MEDS: MELATONIN 5 MG TABLETS PO SCH (22:38)
[2020-01-31] MEDS ORDERED: chlordiazePOXIDE HCL 10 MG CAPSULE PO SCH (05:00)
--- NOTE | 2020-01-31 09:20 | DS ---
[facility] Detox Discharge Summary Admission Date: 01/27/20 Discharge Date: 01/31/20 - History Present History: Alcohol Dependence, Cannabis Dependence - Physical Exam Results Vital Signs: Vital Signs Temperature 97.3 F L 01/31/20 06:01 Pulse Rate 78 01/31/20 06:01 Respiratory Rate 20 01/31/20 06:01 Blood Pressure 134/84 01/31/20 06:01 O2 Sat by Pulse Oximetry (%) 95 01/31/20 06:01 Pertinent Admission Physical Exam Findings: Vital Signs Temp 97.3 F L 01/31/20 06:01 Pulse 78 01/31/20 06:01 Resp 20 01/31/20 06:01 BP 134/84 01/31/20 06:01 Pulse Ox 95 01/31/20 06:01 Laboratory Tests 01/27/20 01/27/20 01/28/20 07:00 19:15 07:00 WBC RBC Hgb Hct MCV MCH MCHC RDW Plt Count MPV Sodium 136 Potassium 4.2 Chloride 102 Carbon Dioxide 30 Anion Gap 5 L BUN 12.2 Creatinine 0.9 Est GFR (CKD-EPI)AfAm 122.52 Est GFR (CKD-EPI)NonAf 105.71 Random Glucose 94 Calcium 8.4 L Total Bilirubin 0.8 AST 66 H ALT 65 H Alkaline Phosphatase 62 Total Protein 7.2 Albumin 3.3 L Syphilis Serology Non-reactive COVID-19 (GILBERTO) Not detected 01/28/20 07:15 WBC 6.6 RBC 4.30 Hgb 13.7 Hct 39.7 MCV 92.3 MCH 31.9 MCHC 34.6 RDW 14.4 D Plt Count 237 MPV 8.0 Sodium Potassium Chloride Carbon Dioxide Anion Gap BUN Creatinine Est GFR (CKD-EPI)AfAm Est GFR (CKD-EPI)NonAf Random Glucose Calcium Total Bilirubin AST ALT Alkaline Phosphatase Total Protein Albumin Syphilis Serology COVID-19 (GILBERTO) labs noted aaox3 ambulating no acute distress lungs CTA - Treatment Hospital Course: Detox Protocol Followed, Detoxed Safely, Responded well, Discharged Condition Good, Rehab Referral Accepted - Medication Discharge Medications: Ambulatory Orders Hydroxyzine HCl 50 mg PO QID PRN 11/13/19 Olanzapine 20 mg PO DAILY PRN 11/13/19 - Diagnosis (1) Alcohol dependence with withdrawal, uncomplicated Current Visit: Yes Status: Chronic (2) Cannabis dependence Current Visit: Yes Status: Chronic (3) Depression Current Visit: Yes Status: Acute Qualifiers: Depression Type: unspecified Qualified Code(s): F32.9 - Major depressive disorder, single episode, unspecified (4) Substance induced mood disorder Current Visit: Yes Status: Acute (5) Hoarseness of voice Current Visit: Yes Status: Chronic (6) Marijuana dependence Current Visit: Yes Status: Chronic (7) Nicotine dependence Current Visit: Yes Status: Chronic Qualifiers: Nicotine product type: cigarettes Substance use status: uncomplicated Qualified Code(s): F17.210 - Nicotine dependence, cigarettes, uncomplicated (8) Schizophrenia Current Visit: Yes Status: Chronic Qualifiers: Schizophrenia type: unspecified Qualified Code(s): F20.9 - Schizophrenia, unspecified (9) Substance-induced sleep disorder Current Visit: No Status: Acute (10) Throat irritation Current Visit: No Status: Acute - AMA Did Patient Leave Against Medical Advice: No
[2020-01-31 09:41] VITALS: BP 152/88; PULSE 114; TEMP 98.2
[2020-02-01] MEDS ORDERED: chlordiazePOXIDE HCL 10 MG CAPSULE PO ONE (05:00)
== END 2020-01-31 09:18 | disposition home or self-care (01) | DRG 775 ==
LOC: YASAS 15:03 → Y6N 18:50
PROVIDERS: ADMIT Allergy & Immunology; ATTEND Allergy & Immunology
PROC: HZ2ZZZZ Detoxification Services for Substance Abuse Treatment (ICD-10-PCS; principal; 2020-01-27)
DX: F10.230 Alcohol dependence with withdrawal, uncomplicated (principal); F12.20 Cannabis dependence, uncomplicated; F17.210 Nicotine dependence, cigarettes, uncomplicated; F19.24 Other psychoactive substance dependence with psychoactive substance-induced mood disorder; F19.282 Other psychoactive substance dependence with psychoactive substance-induced sleep disorder; F20.9 Schizophrenia, unspecified; F32.9 Major depressive disorder, single episode, unspecified; J39.2 Other diseases of pharynx; R49.0 Dysphonia; Z91.5 Personal history of self-harm
CPT/HCPCS: 36415; 80053; 85027; 86780; 93005; 93010; Q0162; U0003